=== PATIENT | female | born 1945 | race Caucasian/White ===

== ENCOUNTER 2016-04-06 07:04 | Inpatient (IN) | payer OTHER, MEDICARE ==
[2016-04-06] MEDS ORDERED: NALOXONE HCL 0.4 MG/ML INJ ONE (08:05)
[2016-04-06] MEDS ORDERED: FLUMAZENIL 0.5 MG/5 ML MDV IVP ONE (08:05)
[2016-04-06] MEDS ORDERED: MIDAZOLAM 2 MG/2 ML VIAL ONE (08:06)
[2016-04-06] MEDS ORDERED: BUPIVACAINE 0.5% 30 ML SDV ONE (08:06)
[2016-04-06] MEDS ORDERED: fentaNYL 100 MCG/2 ML INJ ONE ×3 (08:06→15:04)
[2016-04-06 08:51] LABS: HEMATOCRIT 33.3 % (38.0-47.0)
[2016-04-06 09:08] LABS: INR 1.06 (0.83-1.16); PROTIME(PATIENT) 13.7 SEC (12.0-15.0)
[2016-04-06 09:09] LABS: APTT 29.2 SEC (23.0-38.0)
[2016-04-06] MEDS ORDERED: ceFAZolin 2 GM/DEXTROSE 100 ML IV ONE (10:30)
[2016-04-06] MEDS ORDERED: LR 1,000 ML IV SCH ×2 (10:30→15:00)
--- NOTE | 2016-04-06 10:38 | CT ---
Limited CT chest without contrast 0 929 hours. History: Breast cancer. New nodule on outside CT chest study from [facility]. Request was made for needle hookwire localization for lung wedge resection. Technique: Witnessed Consent: Witnessed informed consent was obtained after the risks, benefits, and alternatives of CT-guided needle hookwire localization of nodule left upper lobe were explained to t he patient and all questions were answered. Spiral imaging was obtained through the upper chest with 2.5 mm slice thickness followed by an additional sequence with 1.25 mm slice thickness. Dose reductio n techniques were utilized. PQRS Cross-Cutting Measure: Tobacco use: No. Findings: On thin imaging through the upper chest, the 4 mm nodule previously identified left upper l obe anterolaterally was not persistent. No additional nodules are identified in the upper chest. Ther e is no consolidation or effusion. There are some areas in the upper lungs demonstrate relative lucen cy with respect to adjacent lung parenchyma. There may be underlying air trapping. Impression: 1. The previously identified nodule left upper lobe was not persistent on thin slice imaging today. C T-guided needle hookwire localization procedure was therefore not performed. 2. Areas of relative lucency in the upper lobes that could be related to underlying air trapping. These findings were discussed by telephone with Dr. Dr. Silvino Cooper at 940 hrs.
[2016-04-06] MEDS ORDERED: DEXAMETHASONE 4 MG/ML VIAL ONE ×3 (12:47→13:48)
[2016-04-06] MEDS ORDERED: LIDOCAINE 2% 5 ML SDV ONE (12:47)
[2016-04-06] MEDS ORDERED: ONDANSETRON 4 MG/2 ML VIAL ONE ×2 (12:47→14:54)
[2016-04-06] MEDS ORDERED: ROCURONIUM 50 MG/5 ML VIAL ONE (12:47)
[2016-04-06] MEDS ORDERED: PROPOFOL 200 MG/20 ML VIAL ONE ×2 (12:52)
[2016-04-06] MEDS ORDERED: PETROLAT,WHT/MIN OIL/SOD CHL 3.5 GM OPHT.OINT ONE (13:53)
[2016-04-06] MEDS ORDERED: HYDROmorphONE/DILAUDID 2 MG/ML SYR ONE (14:19)
[2016-04-06] MEDS ORDERED: SKIN ADHESIVE (DERMABOND) 1 EACH TP ONE (14:20)
[2016-04-06] MEDS ORDERED: ONDANSETRON 4 MG/2 ML VIAL IVP PRN (14:34)
[2016-04-06] MEDS ORDERED: SUGAMMADEX SODIUM 200 MG/2 ML VIAL IVP ONE (14:36)
--- NOTE | 2016-04-06 14:46 | POSTOPPROG ---
Post Op Note Date of Operation: 04/06/16 Surgeon: Silvino Cooper (, FACS) Ramp Attendant: Chayito Valdovinos RN-FA Anesthesiologist: Martin French MD Anesthesia: GET(General Endotracheal) Pre-op Diagnosis: interstitial lung disease Post-op Diagnosis: same Indication: diagnostic tissue biopsy Procedure: left VATS wedge resection LLL Inf/Abcess present in the surg proc area at time of surgery?: No EBL: Minimal Complications: none Drains: Other ([address]) Specimen(s): wedge biopsy LLL superior segment
[2016-04-06] MEDS ORDERED: LEVOTHYROXINE 150 MCG TAB PO SCH (15:00)
[2016-04-06] MEDS ORDERED: HYDROmorphONE/DILAUDID 1 MG/ML SYR ONE (15:04)
--- NOTE | 2016-04-06 15:09 | DX ---
Portable Chest 14:54 History: Status post left VATS lung biopsy, history of breast cancer Comparison: CT chest March 20 Findings: A left chest tube is in place without evidence of pneumothorax. Some consolidation in the m id and lower left lung is consistent with postoperative atelectasis. Costophrenic gutter is sharp. Th e stomach is distended with gas. EKG leads and oxygen tubing overlies the chest. The left upper lobe and right lung remain well aerated. There are left chest wall surgical clips. Impression: Minimal postoperative atelectasis in the left lung.
[2016-04-06] MEDS ORDERED: PROMETHAZINE HCL 25 MG/ML INJ ONE ×2 (15:29→15:44)
[2016-04-06] MEDS: ATORVASTATIN CALCIUM 10 MG TAB PO SCH (17:55)
[2016-04-06] MEDS: NIFEdipine ER 60 MG TAB PO SCH (17:56)
[2016-04-06] MEDS ORDERED: NS 1,000 ML IV SCH (18:00)
--- NOTE | 2016-04-06 18:38 | SOAPPROG ---
Downtime Inpatient MD Late Entry SOAP Note: post op visit: Gillian is awake and complaining of incisional pain/VSS with O2 sat 96% on 4lpm via NC Her chest tube has minimal output and no air leak/the pleuravac was placed to H20 seal. I will check her CXR in the morning and possibly remove her chest tube. continue SDU obs nanci Cooper MD, FACS
[2016-04-06] MEDS: HYDROCODONE/APAP 5/325 TAB PO PRN (20:15)
--- NOTE | 2016-04-06 20:18 | GOP ---
[f rep st] OPERATIVE REPORT DATE OF OPERATION: 04/06/2016 SURGEON: Silvino Cooper MD ELECTROLESS PLATER: MITRA Schuster ANESTHESIA: General endotracheal. ANESTHESIOLOGIST: Martin French MD PREOPERATIVE DIAGNOSIS: Interstitial lung disease. POSTOPERATIVE DIAGNOSIS: Interstitial lung disease. PROCEDURE PERFORMED: Video-assisted thorascopic surgery wedge resection left lower lobe. FINDINGS: Mild anthracotic appearing visceral pleural disease without significant pleural fluid or p arietal pleura plaque or implants. Superior segment of the left lower lobe wedge biopsy submitted for permanent section. ESTIMATED BLOOD LOSS: 10 mL. DESCRIPTION OF PROCEDURE: After informed consent was obtained, the patient was brought to the operat ing room, placed under general anesthesia via double-lumen endotracheal tube. The patient was positi oned in the right lateral decubitus position and the left chest was prepped and draped in the usual s terile fashion. Before proceeding, a time-out and identification of the patient was performed. A 5 mm port was established in the 6th intercostal space along the anterior axillary line by infiltra ting the skin, incising this, and dissecting over the top of the 6th rib with a blunt Pean clamp. Th e chest cavity was entered and a 5 mm port established. A 30 degree 5 mm scope was introduced and th e lung was noted to be hypoventilatory and partially collapsed. An additional 5 mm port was placed p osteriorly just below the tip of the scapula and an access port placed in the midaxillary line at yadiel roximately the 4th intercostal space. The lung was nicely collapsed. There was a little bit of anth racosis noted and the lung was soft and pliable. We extended the posterior port to allow introductio n of an EndoGIA 45 stapler and a 15 mm port was placed here. The instrument was introduced and a wed ge section of the left lower lobe was taken with 2 firings of the TOVA stapler. This was retrieved th rough the access incision and submitted for permanent section. A 24-Gabonese chest tube was brought th rough the anterior axillary line incision in the 6th intercostal space and this was positioned unit leader iorly and directed toward the apex. The chest tube was secured to the skin with 0 silk suture. The lung was re-expanded with no obvious leaks noted. Hemostasis appeared secure. All instruments and p orts were removed. The subcutaneous tissues were approximated with 2-0 Vicryl sutures. The skin was closed with 4-0 Monocryl suture in a subcuticular fashion followed by Dermabond. The chest tube was dressed with Xeroform gauze and cotton gauze, followed by a large Tegaderm. The chest tube was secu red to a Pleur-evac with no significant air leak noted. The patient was returned to the supine posit ion, extubated, and brought to the recovery room in satisfactory condition. Needle, sponge, and inst rument counts were correct. COMPLICATIONS: None. /[id number]/MODL
[2016-04-06] MEDS ORDERED: guaiFENesin 600 MG TAB.ER PO SCH (21:00)
[2016-04-06] MEDS ORDERED: FLUTICASONE NASAL 120 SPRAYS/16 GM MDI EACHNARE SCH (21:00)
[2016-04-07] MEDS: HYDROCODONE/APAP 5/325 TAB PO PRN ×5 (00:15→17:45)
[2016-04-07 06:50] LABS: % IMMATURE GRANULYOCYTES 0.3 % (0.0-1.1); ABSOLUTE IMMATURE GRANULOCYTES 0.02 10^3/uL (0.00-0.10); ADD DIFF? NO; ADD MORPH? NO; ADD SCAN? NO; ATYPICAL LYMPHOCYTE FLAG 0 (0-99); FRAGMENT RBC FLAG 0 (0-99); HEMATOCRIT 37.6 % (38.0-47.0); HEMOGLOBIN 13.1 g/dL (12.6-16.3); LEFT SHIFT FLG 0 (0-99); LIPEMIA HEMOLYSIS FLAG 90 (0-99); MEAN CELL HEMOGLOBIN 30.2 pg (27.9-34.1); MEAN CELL HEMOGLOBIN CONCENTR. 34.8 g/dL (32.4-36.7); MEAN CELL VOLUME 86.6 fL (81.5-99.8); MEAN PLATELET VOLUME 10.9 fL (8.7-11.7); PLATELET CLUMPS FLAG 0 (0-99); PLATELET COUNT 171 10^3/uL (150-400); RED BLOOD CELL COUNT 4.34 10^6/uL (4.18-5.33); RED CELL DISTRIBUTION WIDTH 13.2 % (11.5-15.2)
--- NOTE | 2016-04-07 07:17 | SOAPPROG ---
SOAP Progress Note Assessment/Plan: Assessment: s/p LLL VATS wedge bx for ILD stable post op CXR on [id number]/CT removed Plan: advance activity/diet recheck CXR later today ?DC home later today or tomorrow S MD Allison, FACS 04/07/16 07:14 Subjective: pain with coughing Objective: Vital Signs Temp Pulse Resp BP Pulse Ox 36.6 C 76 18 126/59 H 93 04/07/16 04:00 04/07/16 04:00 04/07/16 04:00 04/07/16 04:00 04/07/16 04:00 Laboratory Results 04/07/16 06:30 04/06/16 04/07/16 04/08/16 05:59 05:59 05:59 Intake Total 2117 Output Total 102 Balance 2014 PT 13.7 SEC (12.0-15.0) 04/06/16 08:35 INR 1.06 (0.83-1.16) 04/06/16 08:35 Physical Exam - Physical Exam General Appearance: alert, no apparent distress Respiratory: lungs clear, other (CT without airleak/minimal drainage) Cardiac/Chest: regular rate, rhythm, other (CT removed using sterile technique/ occlusive dressing applied) ICD10 Worksheet Patient Problems: Problems Problem Status Diagnosed History of breast cancer Acute Hypertension Acute Hypoxemia Acute Interstitial lung disease Acute - ICD10 Problem Qualifiers (1) Interstitial lung disease (2) Hypoxemia (3) Hypertension (4) History of breast cancer
--- NOTE | 2016-04-07 08:04 | DX ---
Portable Chest 607 a.m. History: Follow-up left lung surgery Comparison: April 06 Findings: Left mid lung consolidation is improving. The left costophrenic gutter remain sharp. There is a plate of atelectasis at the right base. A left chest tube remains in place without pneumothorax. EKG leads overlie the chest. Impression: Improvement.
[2016-04-07] MEDS ORDERED: SENNOSIDES/DOCUSATE SODIUM TAB PO SCH (09:00)
[2016-04-07] MEDS ORDERED: ENOXAPARIN 40 MG/0.4 ML SYR SC SCH (09:00)
[2016-04-07] MEDS ORDERED: LOSARTAN POTASSIUM 50 MG TAB PO SCH (09:00)
[2016-04-07] MEDS ORDERED: ASPIRIN 81 MG CHEWABLE TAB PO SCH (09:00)
--- NOTE | 2016-04-07 10:04 | DX ---
Portable Chest 843 a.m. History: Post left chest tube removal, post left VATS surgery Comparison: 607 a.m. Findings: A left chest tube has been removed. There is no pneumothorax. There is still a small amount of atelectasis in the lateral left lower lung. The heart remains enlarged. The pulmonary vascularity is normal. Oxygen tubing overlies the chest. There is stable left chest wall surgical clips. Impression: No pneumothorax post left chest tube removal.
--- NOTE | 2016-04-07 11:17 | PDINTPN ---
Propeller Layout Worker Progress Note Assessment/Plan: Assessment: S/P Lung biopsy: CT out, recovering well. Pneumonitis: Off prednisone S/P lung biopsy. Lung nodule: Tiny, non-smoker. Resected. Plan: Increase activity. Will go home on oxygen. OK to start Prednisone 20mg/ day in 2-5 days if OK with Dr. Cooper. I'll see in the office in 3 weeks. 04/07/16 11:15 Subjective: Has CP, but not too bad, able to move around a bit. Objective: Vital Signs Temp Pulse Resp BP Pulse Ox 36.8 C 75 18 132/53 H 94 04/07/16 09:54 04/07/16 09:54 04/07/16 09:54 04/07/16 09:54 04/07/16 09:54 Laboratory Results 04/07/16 06:30 04/06/16 04/07/16 04/08/16 05:59 05:59 05:59 Intake Total 2117 Output Total 102 Balance 2014 PT 13.7 SEC (12.0-15.0) 04/06/16 08:35 INR 1.06 (0.83-1.16) 04/06/16 08:35 CXR: No PTX, minimal atelectasis. Images reviewed. Physical Exam - Physical Exam General Appearance: alert, no apparent distress EENT: normal ENT inspection Neck: normal inspection Respiratory: normal breath sounds, crackles Cardiac/Chest: regular rate, rhythm, edema Abdomen: normal bowel sounds, non-tender, soft Skin: normal color, warm/dry Extremities: normal inspection Neuro/Psych: alert, normal mood/affect, oriented x 3 ICD10 Worksheet Patient Problems: Problems Problem Status Diagnosed History of breast cancer Acute Hypertension Acute Hypoxemia Acute Interstitial lung disease Acute
[2016-04-07 15:37] VITALS: PULSE 74; RESP 16; TEMP 98.5; O2SAT 93
[2016-04-07] MEDS: ATORVASTATIN CALCIUM 10 MG TAB PO SCH (17:42)
[2016-04-07] MEDS: NIFEdipine ER 60 MG TAB PO SCH (17:42)
--- NOTE | 2016-04-07 17:42 | PDDCSUM ---
Discharge Summary Discharge Summary: DOA: 04/06/16 DOD: 04/07/16 Discharge Dx: 1. Interstitial Lung Disease 2. Hypoxemia 3. HTN 4. history of breast cancer 5. hypothyroidism Surgery 04/06/16: VATS Left lower lobe wedge biposy Course: Gillian was admitted for an elective lung biposy for ILD. She had become oxygen dependent, requiring 3 lpm via NC pre-op. Following surgery she was admitted to the SDU with a chest tube on suction. This was placed to water seal later in the day and it was removed the following morning. Post removal CXR showed no pneumothorax. She was ambulatory and returned to her baseline O2 requirements She was instructed in activity and diet and will follow up in my office in the next week. DC meds: see medication reconciliation Ladan Cooper MD, FACS
[2016-04-07 17:46] VITALS: BP 133/50
[2016-04-08] MEDS ORDERED: LEVOTHYROXINE 150 MCG TAB PO SCH (06:00)
== END 2016-04-07 18:51 | disposition home or self-care (01) | DRG 168 ==
LOC: F3E 07:04 → F2N 16:00 → OBSVTOIN 16:30
PROVIDERS: ADMIT Surgery; ATTEND Surgery
PROC: 0BBJ4ZX Excision of Left Lower Lung Lobe, Percutaneous Endoscopic Approach, Diagnostic (ICD-10-PCS; principal; 2016-04-06 11:15)
DX: J84.9 Interstitial pulmonary disease, unspecified (principal); I10 Essential (primary) hypertension; R09.02 Hypoxemia; E03.9 Hypothyroidism, unspecified; Z85.3 Personal history of malignant neoplasm of breast
CPT/HCPCS: J0690; J1100; J1170; J1650; J2250; J2310; J2405; J2550; J2704; J3010

== ENCOUNTER → 2016-05-14 | Outpatient (CLI) | payer OTHER, MEDICARE | LOC: FIMAGING 11:12 | DX: Z12.31 Encounter for screening mammogram for malignant neoplasm of breast (principal); Z85.3 Personal history of malignant neoplasm of breast | CPT/HCPCS: G0202 ==

== ENCOUNTER → 2017-04-09 | Outpatient (CLI) | payer OTHER, MEDICARE | LOC: FIMAGING 08:44 | PROVIDERS: ATTEND Internal Medicine Hematology & Oncology | DX: N63.21 Unspecified lump in the left breast, upper outer quadrant (principal); Z85.3 Personal history of malignant neoplasm of breast ==

== ENCOUNTER → 2017-04-17 | Outpatient (CLI) | payer OTHER, MEDICARE ==
[~2017-04-17] MED LIST: BUPIVACAINE 0.5% 30 ML SDV ONE; LIDOCAINE 1% 300 MG/30 ML SDV ONE; THROMBIN (BOVINE) 5,000 UNIT VIAL TP ONE
== END ==
LOC: FIMAGING 07:09
PROVIDERS: ATTEND Internal Medicine Hematology & Oncology
PROC: 0HBU3ZX Excision of Left Breast, Percutaneous Approach, Diagnostic (ICD-10-PCS; principal; 2017-04-17)
DX: N63.20 Unspecified lump in the left breast, unspecified quadrant (principal); N60.02 Solitary cyst of left breast

== ENCOUNTER → 2017-07-30 | Outpatient (CLI) | payer OTHER, MEDICARE | LOC: BHFA 09:30 | PROVIDERS: ATTEND Internal Medicine Cardiovascular Disease | DX: R94.39 Abnormal result of other cardiovascular function study (principal); I48.0 Paroxysmal atrial fibrillation; I10 Essential (primary) hypertension | CPT/HCPCS: 78452; 93017; A9500; J2785 ==

== ENCOUNTER → 2017-10-31 | Outpatient (CLI) | payer OTHER, MEDICARE | LOC: FIMAGING 13:27 | PROVIDERS: ATTEND Internal Medicine Hematology & Oncology | DX: D24.1 Benign neoplasm of right breast (principal); Z85.3 Personal history of malignant neoplasm of breast ==

== ENCOUNTER → 2018-03-11 | Outpatient (CLI) | payer OTHER, MEDICARE | LOC: FIMAGING 12:39 | PROVIDERS: ATTEND Internal Medicine Hematology & Oncology | DX: Z13.820 Encounter for screening for osteoporosis (principal); M85.89 Other specified disorders of bone density and structure, multiple sites; Z78.0 Asymptomatic menopausal state ==

== ENCOUNTER → 2018-03-24 | Outpatient (CLI) | payer OTHER, MEDICARE | LOC: FIMAGING 14:25 | PROVIDERS: ATTEND Internal Medicine Hematology & Oncology | DX: Z53.8 Procedure and treatment not carried out for other reasons (principal) ==